=== PATIENT | male | born 1985 | race Caucasian/White ===

== ENCOUNTER 2022-06-28 14:31 | Emergency (ER) | payer OTHER ==
[2022-06-28 14:43] VITALS: BP 147/102
[2022-06-28] MEDS ORDERED: KEFLEX 500 MG PO ONE (16:15)
[2022-06-28] MEDS ORDERED: KEFLEX 500 MG ONE (16:17)
--- NOTE | 2022-06-28 16:17 | ERPHSYRPT ---
- History of Present Illness Time Seen by Provider: 06/28/22 16:19 Source: patient Exam Limitations: no limitations Patient Subjective Stated Complaint: pt here for pain and swelling to both ankles, pt states last friday he got feet in concrete and thinks he was concrete rg Triage Nursing Assessment: pt alert, walked in, resp easy skin w/d/p, has swelling,redness and excudate around ankles Physician History: Patient is a 37-year-old male presents to our ED for evaluation of 10-day-old rg to both ankles right greater than left. Patient has been managing his rg at home over the past 10 days. He states the left is healing well but the right appears to be developing an infection. Patient has been applying an unknown cream which she has found beneficial with regard to relieving his symptoms. No other complaints. No systemic manifestations. No fever no chills no nausea vomiting or diaphoresis. No blunt trauma. Patient is ambulatory with a normal gait. Tetanus is up-to-date. Timing/Duration: day(s) (10 days) Severity: moderate Modifying Factors: Improves With: nothing Associated Symptoms: denies symptoms Allergies/Adverse Reactions: No Known Drug Allergies Allergy (Unverified 06/28/22 14:40) Home Medications: Amlodipine Besylate [Norvasc] 2.5 mg PO DAILY 06/28/22 [History] Hx Tetanus, Diphtheria Vaccination/Date Given: No Hx Influenza Vaccination/Date Given: No Hx Pneumococcal Vaccination/Date Given: No Immunizations Up to Date: Yes Travel Risk - International Travel Have you traveled outside of the country in past 3 weeks: No - Coronavirus Screening Are you exhibiting any of the following symptoms?: No Close contact with a COVID-19 positive Pt in past 14-21 Days: No - Vaccine Status Have you recieved a Covid-19 vaccination: Yes 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[employer] - [employer] Constitutional: No Symptoms, No Fever, No Chills Eyes: No Symptoms Ears, Nose, & Throat: No Symptoms Respiratory: No Symptoms, No Cough, No Dyspnea Cardiac: No Symptoms, No Chest Pain, No Edema, No Syncope Abdominal/Gastrointestinal: No Symptoms, Appetite Changes, No Abdominal Pain, No Nausea, No Vomiting, No Diarrhea Genitourinary Symptoms: No Dysuria Musculoskeletal: No Symptoms, No Back Pain, No Neck Pain Skin: No Symptoms, No Rash Neurological: No Symptoms, No Dizziness, No Focal Weakness, No Sensory Changes Psychological: No Symptoms Endocrine: No Symptoms Hematologic/Lymphatic: No Symptoms Immunological/Allergic: No Symptoms All Other Systems: Reviewed and Negative - Past Medical History Pertinent Past Medical History: Yes Cardiac History: Hypertension - Past Surgical History Past Surgical History: No - Social History Smoking Status: Current every day smoker Exposure to second hand smoke: Yes Drug Use: none Patient Lives Alone: No - Nursing Vital Signs Nursing Vital Signs: Initial Vital Signs Temperature 97.6 F 06/28/22 14:43 Pulse Rate 72 06/28/22 14:43 Respiratory Rate 18 06/28/22 14:43 Blood Pressure 147/102 06/28/22 14:43 O2 Sat by Pulse Oximetry 98 06/28/22 14:43 Pain Scale Pain Intensity 3 - Physical Exam General Appearance: no apparent distress, alert Eye Exam: PERRL/EOMI, eyes nml inspection Ears, Nose, Throat Exam: normal ENT inspection, TMs normal, pharynx normal, moist mucous membranes Neck Exam: normal inspection, non-tender, supple, full range of motion Respiratory Exam: normal breath sounds, lungs clear, No respiratory distress Cardiovascular Exam: regular rate/rhythm, normal heart sounds, normal peripheral pulses Gastrointestinal/Abdomen Exam: soft, normal bowel sounds, No tenderness, No mass Back Exam: normal inspection, normal range of motion, No CVA tenderness, No vertebral tenderness Extremity Exam: normal inspection, normal range of motion, pelvis stable Neurologic Exam: alert, oriented x 3, cooperative, normal mood/affect, nml cerebellar function, nml station & gait, sensation nml, No motor deficits Skin Exam: normal color, warm, dry, No rash Lymphatic Exam: No adenopathy SpO2: 98 - Course Nursing assessment & vital signs reviewed: Yes Ordered Tests: Medication Summary Discontinued Medications Generic Name Dose Route Start Last Admin Trade Name Freq PRN Reason Stop Dose Admin Cephalexin HCl 500 mg 06/28/22 16:15 Cephalexin Mh500 Mg Capsule PO 06/28/22 16:16 STAT ONE - Progress Progress: improved Progress Note: Patient 37-year-old male presents emergency department for evaluation of 10-day-old rg to both ankles. Patient sustained the burn while pouring concrete. [place] apparently fell into his boots and burned his skin. Patient has been managing this with [id number] cream. We are unsure which cream he has been using. Patient is here because the right ankle appears to be not healing well. The left ankle is almost completely healed. The right is developing a cellulitis. No lymphangitis. Patient presentation is acute. Complexity of complaint is mild. No significant comorbidities to contribute the patient's problem. No special testing ordered. Medical decision making was based on history and physical exam. Tetanus is not up-to-date. Patient received a dose of Adacel. Patient also received a dose of Keflex in our ED. A prescription for Keflex was forwarded to patient's pharmacy. Patient declined pain medication. Plan of care. Physical therapy came to our ED and evaluated patient. They are involved in the long-term management of patient's symptoms. Patient will follow up with them as an outpatient for wound care. Physical therapy is applying a wrap at this time prior to discharge. Patient has the means to follow through with plan of care. Level of EM service provided was low. Complexity of problem is mild. No data reviewed. Management based on history and physical. No critical care time. Patient served as an independent historian. Time spent on discharge is approximately 10 minutes. Discharge diagnosis is wound care for a acute to subacute wound, 10 days old. Patient will follow up with physical therapy for ongoing wound care. Physical therapy at bedside establishing care Portions of this note were created with voice recognition technology. There may be grammatical, spelling, punctuation or sound alike errors 06/28/22 16:23 Counseled pt/family regarding: diagnosis, need for follow-up - Departure Departure Disposition: Home Clinical Impression: Encounter for evaluation of wound, Cellulitis, concrete burn Condition: Stable Critical Care Time: No Referrals: DOCTOR,NO FAMILY [Primary Care Provider] - Follow up/PCP as directed NETTA CRAIG MD [ACTIVE STAFF] - Follow up/PCP as directed Additional Instructions: Discharge/Care Plan VAMSI GARCIA JR was seen on 06/28/22 in the Emergency Room. The patient was counseled regarding Diagnosis,Lab results, Imaging studies, need for follow up and when to return to the Emergency Room. Prescriptions given: Discharge Note I have spoken with the patient and/or caregivers. I have explained the patient's condition, diagnosis and treatment plan based on the information available to me at this time. I have answered the patient's and/or caregiver's questions and addressed any concerns. The patient and/or caregivers have as good understanding of the patient's diagnosis, condition and treatment plan as can be expected at this point. The vital signs have been stable. The patient's condition is stable and appropriate for discharge from the emergency department. The patient will pursue further outpatient evaluation with the primary care physician or other designated or consulting physician as outlined in the discharge instructions. The patient and/or caregivers are agreeable to this plan of care and follow-up instructions have been explained in detail. The patient and/or caregivers have received these instruction. The patient/and or caregivers are aware that any significant change in condition or worsening of symptoms should prompt an immediate return to this or the closest emergency department or call 911. Prescriptions: Cephalexin Mh 500 mg [Keflex 500 mg] 500 mg PO TID #21 cap
[2022-06-28] MEDS ORDERED: Adacel Vial IM ONE ×2 (16:22→16:24)
[2022-06-28 16:35] VITALS: PULSE 76; O2SAT 97
== END 2022-06-28 16:35 | disposition home or self-care (01) ==
LOC: ED 14:31
DX: T25.011A Burn of unspecified degree of right ankle, initial encounter (principal); T79.8XXA Other early complications of trauma, initial encounter; L03.115 Cellulitis of right lower limb; X12.XXXA Contact with other hot fluids, initial encounter; Y93.H3 Activity, building and construction; I10 Essential (primary) hypertension; Z79.899 Other long term (current) drug therapy; Z72.0 Tobacco use
CPT/HCPCS: 90471; 90715; 99282; A9270-GY